=== PATIENT | female | born 1975 | race Asian ===

== ENCOUNTER 2018-06-04 11:49 | Outpatient (REF) | payer MEDICAID, SELFPAY ==
--- NOTE | 2018-06-04 11:30 | PAPFT_PTH ---
PATIENT: Anay Zamorano LOC: [facility] U#:[id number] AGE/SX: 43/F ROOM: RE06/04/[address]: Kerline Mackenzie CNM : 1975 BED: DIS: 06/04/2018 SPEC #: [id number] RECD: 06/04/18 13:00 STATUS: JORDAN CHRISTIAN #: [id number] YEN: 06/04/18 11:[address]: Kerline Mackenzie DEPT: [facility] Cytology RECD BY: Layla Sandoval ENTERED: 06/04/18 13:00 SP TYPE: PAPFT OTHR DR: Mayra Mann Tissues: 1 - CX/ENDOCX FOR PAP SMEARS Procedures: PAP THIN PREP/UVM Screening HPV DNA PROBE Comments: [id number]
[2018-06-04 14:00] LABS: Tricyclic Antidepressants Negative (Negative)
[2018-06-04 14:02] LABS: *AMPHETAMINES SCREEN URINE Negative (Negative); *BARBITURATES SCREEN URINE Negative (Negative); *BENZODIAZEPINES SCREEN URINE Negative (Negative); Cannabinoids THC Negative (Negative); Cocaine Screen,Urine Negative (Negative); METHADONE URINE SCREEN Negative (Negative); OPIATES URINE SCREEN Negative (Negative)
[2018-06-05 14:35] LABS: Chlamydia Result Negative; GC Result Negative; Specimen Description CERVIX
== END 2018-06-04 11:50 ==
LOC: LBN 11:49
PROVIDERS: PCP Nurse Practitioner Adult Health; Visit Provider Advanced Practice Midwife
DX: Z34.91 Encounter for supervision of normal pregnancy, unspecified, first trimester (principal); Z11.3 Encounter for screening for infections with a predominantly sexual mode of transmission; Z12.4 Encounter for screening for malignant neoplasm of cervix; Z11.51 Encounter for screening for human papillomavirus (HPV)
CPT/HCPCS: 80307; 87491; 87591; 88142; 87086; 87480; 87510; 87624; 87660

== ENCOUNTER 2018-06-04 12:02 | Outpatient (CLI) | payer MEDICAID, SELFPAY ==
[2018-06-04 12:30] LABS: Abs Immature Grans 0.03 k/cumm (0.0-0.09); Absolute Basophil Count 0.02 k/cumm (0.0-0.2); Absolute Eosinophil Count 0.06 k/cumm (0.0-0.7); Absolute Lymphocyte Count 1.27 k/cumm (1.2-3.4); Absolute Monocyte Count 0.52 k/cumm (0.11-0.7); Absolute Neutrophil Count 7.29 k/cumm (1.2-6.7); Basophils % 0.2; Eosinophils % 0.7; HCT 38.6 % (36.0-46.0); HGB 13.2 g/dL (12.0-15.5); Immature Grans % 0.3; Lymphocytes % 13.8; Mean Corp. HGB Concentration 34.2 g/dL (32.0-36.0); Mean Corpuscular Hemoglobin 26.7 pg (27.0-33.0); Mean Platelet Volume 9.8 fL (8.0-11.0); Monocytes % 5.7; Neutrophils % 79.3; Platelet Count 215 x1000/uL (130-400); RBC 4.95 m/cumm (4.00-5.20); White Blood Cell Count 9.19 k/cumm (4.4-10.8)
[2018-06-04 13:47] LABS: TSH (W/Ref FT4) 0.63 uIU/mL (0.358-3.74)
[2018-06-04 22:57] LABS: Hepatitis C Ab w Rflx HCV PCR Negative (NEGAT)
[2018-06-05 11:21] LABS: Rubella IgG Ab (UVM) Positive; Syphilis Serology (RPR) Negative (Negative)
[2018-06-05 13:32] LABS: Hepatitis B Surface Ag Negative (NEGAT)
[2018-06-05 13:41] LABS: HIV-1/2 Ag & Ab Screen Negative (NEGAT)
== END 2018-06-04 12:03 ==
PROVIDERS: PCP Nurse Practitioner Adult Health; Visit Provider Advanced Practice Midwife
DX: Z34.91 Encounter for supervision of normal pregnancy, unspecified, first trimester (principal)
CPT/HCPCS: 36415; 80055; 86850; 86900; 86901; 84443

== ENCOUNTER 2018-09-16 14:30 | Observation (INO) | payer MEDICAID, SELFPAY ==
[2018-09-16 16:24] LABS: Bilirubin Negative (Negative); Blood Negative (Negative); Clarity Clear; Glucose Negative (Negative); Ketones Negative (Negative); Leukocyte Esterase Negative (Negative); Nitrite Negative (Negative); Urobilinogen 0.2 EU/dL (Up TO 0.2)
== END 2018-09-16 18:05 | disposition home or self-care (01) ==
PROVIDERS: Admitting Provider Nurse Practitioner; PCP Nurse Practitioner Adult Health; Visit Provider Nurse Practitioner
DX: O60.02 Preterm labor without delivery, second trimester (principal); Z3A.24 24 weeks gestation of pregnancy; O9A.212 Injury, poisoning and certain other consequences of external causes complicating pregnancy, second trimester; O09.512 Supervision of elderly primigravida, second trimester; S33.5XXA Sprain of ligaments of lumbar spine, initial encounter; X50.0XXA Overexertion from strenuous movement or load, initial encounter
CPT/HCPCS: 81003; G0378

== ENCOUNTER 2018-10-09 08:25 | Outpatient (CLI) | payer MEDICAID, SELFPAY ==
[2018-10-09 10:11] LABS: Glucose,1 Hr (Glucola) 145 mg/dL (80-140)
[2018-10-09 10:12] LABS: HCT 34.6 % (36.0-46.0); HGB 11.4 g/dL (12.0-15.5); Mean Corp. HGB Concentration 32.9 g/dL (32.0-36.0); Mean Corpuscular Hemoglobin 27.3 pg (27.0-33.0); Mean Platelet Volume 10.1 fL (8.0-11.0); Platelet Count 173 x1000/uL (130-400); RBC 4.17 m/cumm (4.00-5.20); RBC Distribution Width 14.3 % (11.7-14.6); White Blood Cell Count 13.47 k/cumm (4.4-10.8)
== END 2018-10-09 08:45 ==
PROVIDERS: PCP Nurse Practitioner Adult Health; Visit Provider Nurse Practitioner
DX: Z34.93 Encounter for supervision of normal pregnancy, unspecified, third trimester (principal)
CPT/HCPCS: 36415; 82950; 85027; 86850

== ENCOUNTER 2018-10-23 02:58 | Outpatient (CLI) | payer MEDICAID, SELFPAY ==
[2018-10-23 10:25] LABS: Glucose 1 Hour 126 mg/dL
[2018-10-23 12:15] LABS: Glucose 3 Hour 128 mg/dL
== END 2018-10-23 03:18 ==
PROVIDERS: PCP Nurse Practitioner Adult Health; Visit Provider Advanced Practice Midwife
DX: R73.09 Other abnormal glucose (principal)
CPT/HCPCS: 36410; 82951

== ENCOUNTER 2018-12-09 17:21 | Outpatient (CLI) | payer MEDICAID, SELFPAY | END 2018-12-09 17:41 | PROVIDERS: PCP Nurse Practitioner Adult Health; Visit Provider Advanced Practice Midwife | DX: O09.523 Supervision of elderly multigravida, third trimester (principal); Z3A.36 36 weeks gestation of pregnancy | CPT/HCPCS: 59025 ==

== ENCOUNTER 2018-12-12 15:25 | Outpatient (CLI) | payer MEDICAID, SELFPAY | END 2018-12-12 15:45 | PROVIDERS: Visit Provider Advanced Practice Midwife | DX: O09.523 Supervision of elderly multigravida, third trimester (principal); Z3A.36 36 weeks gestation of pregnancy | CPT/HCPCS: 59025 ==

== ENCOUNTER 2018-12-12 16:32 | Outpatient (REF) | payer MEDICAID, SELFPAY | END 2018-12-12 16:52 | LOC: LBN 16:32 | PROVIDERS: Visit Provider Advanced Practice Midwife | DX: Z34.93 Encounter for supervision of normal pregnancy, unspecified, third trimester (principal); Z36.85 Encounter for antenatal screening for Streptococcus B | CPT/HCPCS: 87081 ==

== ENCOUNTER 2018-12-15 14:59 | Outpatient (CLI) | payer MEDICAID, SELFPAY | END 2018-12-15 15:19 | PROVIDERS: Visit Provider Advanced Practice Midwife | DX: O09.523 Supervision of elderly multigravida, third trimester (principal); Z3A.37 37 weeks gestation of pregnancy | CPT/HCPCS: 59025 ==

== ENCOUNTER 2018-12-18 16:54 | Outpatient (CLI) | payer MEDICAID, SELFPAY | END 2018-12-18 17:14 | PROVIDERS: Visit Provider Advanced Practice Midwife | DX: O09.523 Supervision of elderly multigravida, third trimester (principal); Z3A.37 37 weeks gestation of pregnancy | CPT/HCPCS: 59025 ==

== ENCOUNTER 2018-12-22 16:11 | Outpatient (CLI) | payer MEDICAID, SELFPAY | END 2018-12-22 16:31 | PROVIDERS: Visit Provider Advanced Practice Midwife | DX: O09.523 Supervision of elderly multigravida, third trimester (principal); Z3A.37 37 weeks gestation of pregnancy | CPT/HCPCS: 59025 ==

== ENCOUNTER 2018-12-25 14:09 | Outpatient (CLI) | payer MEDICAID, SELFPAY | END 2018-12-25 14:29 | PROVIDERS: Visit Provider Advanced Practice Midwife | DX: O09.523 Supervision of elderly multigravida, third trimester (principal); Z3A.38 38 weeks gestation of pregnancy | CPT/HCPCS: 59025 ==

== ENCOUNTER 2018-12-29 13:47 | Outpatient (CLI) | payer MEDICAID, SELFPAY | END 2018-12-29 14:07 | PROVIDERS: Visit Provider Advanced Practice Midwife | DX: O09.523 Supervision of elderly multigravida, third trimester (principal); Z3A.39 39 weeks gestation of pregnancy | CPT/HCPCS: 59025 ==

== ENCOUNTER 2019-01-01 15:50 | Outpatient (CLI) | payer MEDICAID, SELFPAY | END 2019-01-01 16:10 | PROVIDERS: Visit Provider Advanced Practice Midwife | DX: O09.523 Supervision of elderly multigravida, third trimester (principal); Z3A.39 39 weeks gestation of pregnancy | CPT/HCPCS: 59025 ==

== ENCOUNTER 2019-01-05 14:29 | Outpatient (CLI) | payer MEDICAID, SELFPAY | END 2019-01-05 14:49 | PROVIDERS: Visit Provider Advanced Practice Midwife | DX: O09.523 Supervision of elderly multigravida, third trimester (principal); O48.0 Post-term pregnancy; Z3A.40 40 weeks gestation of pregnancy | CPT/HCPCS: 59025 ==

== ENCOUNTER 2019-01-08 00:47 | Outpatient (CLI) | payer MEDICAID, SELFPAY ==
--- NOTE | 2019-01-08 12:43 | DI.US_ITS ---
SYMPTOMS/DIAGNOSIS: POST DATES, ADVANCED MATERNAL AGE, Z34.90 LIMITED OBSTETRICAL ULTRASOUND: Many abnormalities cannot be diagnosed. A normal exam does not exclude a congenital anomaly. Radiology No. [id number] LMP: Exam Date: 01/08/19 [facility] wks days on EDC ([facility]) 01/05/19 Confirmed: HISTORY: PREDICTED GESTATIONAL AGE NUMBER 40+3 weeks with a range of 39+3 weeks to 41+3 weeks. 1 Determined by___1STUS___LMP___HISTORY__X___EDC PLACENTA PRESENTATION Grade II Cephalic_X__ Anterior_X__Posterior___ Breech____ Right Left Transverse(head right___ Fundal___Low-lying___Previa___ Transverse(head left___ Varying BIOMETRY AMNIOTIC FLUID BPD: 93 mm 37+5 weeks Normal HC: 346 mm 40 weeks AC: 364 mm 40+2 weeks FL: 75 mm 38+1 weeks AMNIOTIC FLUID INDEX >26 WK CRL: mm weeks Cisterna Magna: mm CI: 0.78 RUQ: 3.33 LUQ: 7.62 Cerebellum: cm EFW: 3805 grams Percentile: 59th RLQ: 2.58 LLQ: 3.07 Total: 16.6 cm Composite AGE= 39 wks EDC by US: 01/15/19 BIOPHYSICAL PROFILE ANATOMY IDENTIFIED SCORE 0/2 Heart: 4-Chamber___Rate:BPM 132 LVOT: RVOT: Amniotic Fluid(>2cms)____ Stomach:___X____ Kidneys: Respirations (>30 secs) Bladder:___X Post. Fossa: Body Flex/Extension 3-vessel cord:__X Ventricles: cord insertion: Lips:____ Extremity Flex/Extension spinal morphology: Nose: Total Score= Palate: NS=not seen COMMENTS: There is a single living intrauterine gestation. Estimated sonographic age is 39 weeks. The fetus is in the cephalic presentation. heart rate is 132 beats per minute. A complete anatomic evaluation was not performed at this examination. The amniotic fluid index is 16.6 cm. Visually, this is within normal limits. Placenta is anterior without evidence of previa. Estimated weight is 3805 g, which is the 59th percentile. IMPRESSION: Single living intrauterine gestation. Estimated sonographic age is 39 weeks.
== END 2019-01-08 01:07 ==
PROVIDERS: Visit Provider Advanced Practice Midwife
DX: O48.0 Post-term pregnancy (principal); Z34.93 Encounter for supervision of normal pregnancy, unspecified, third trimester
CPT/HCPCS: 76816

== ENCOUNTER 2019-01-08 13:26 | Outpatient (CLI) | payer MEDICAID, SELFPAY | END 2019-01-08 13:46 | PROVIDERS: Visit Provider Advanced Practice Midwife | DX: O09.523 Supervision of elderly multigravida, third trimester (principal); O48.0 Post-term pregnancy; Z3A.40 40 weeks gestation of pregnancy | CPT/HCPCS: 59025 ==

== ENCOUNTER 2019-01-09 07:00 | Inpatient (IN) | payer MEDICAID, SELFPAY ==
[2019-01-09 09:10] LABS: HCT 34.7 % (36.0-46.0); HGB 11.7 g/dL (12.0-15.5); Mean Corp. HGB Concentration 33.7 g/dL (32.0-36.0); Mean Corpuscular Hemoglobin 27.7 pg (27.0-33.0); Mean Platelet Volume 10.4 fL (8.0-11.0); Platelet Count 143 x1000/uL (130-400); RBC 4.23 m/cumm (4.00-5.20); RBC Distribution Width 14.5 % (11.7-14.6); White Blood Cell Count 15.55 k/cumm (4.4-10.8)
[2019-01-09] MEDS: Hamamelis Leaf/Glycerin 100 EACH BOX PR (22:01)
[2019-01-10 11:27] LABS: HCT 31.1 % (36.0-46.0); HGB 10.5 g/dL (12.0-15.5); Mean Corp. HGB Concentration 33.8 g/dL (32.0-36.0); Mean Corpuscular Hemoglobin 27.6 pg (27.0-33.0); Mean Corpuscular Volume 81.8 fL (80-95); Mean Platelet Volume 10.4 fL (8.0-11.0); Platelet Count 136 x1000/uL (130-400); RBC Distribution Width 14.5 % (11.7-14.6); White Blood Cell Count 17.96 k/cumm (4.4-10.8)
== END 2019-01-12 13:35 | disposition home or self-care (01) | DRG 806 ==
PROVIDERS: Admitting Provider Advanced Practice Midwife; Visit Provider Advanced Practice Midwife
DX: O48.0 Post-term pregnancy (principal); Z37.0 Single live birth; O98.32 Other infections with a predominantly sexual mode of transmission complicating childbirth; O70.0 First degree perineal laceration during delivery; O32.4XX0 Maternal care for high head at term, not applicable or unspecified; O92.3 Agalactia; Z3A.40 40 weeks gestation of pregnancy; A60.00 Herpesviral infection of urogenital system, unspecified
CPT/HCPCS: 36415; 85027; 86850; 86900; 86901

== ENCOUNTER 2020-06-08 02:53 | Outpatient (CLI) | payer MEDICAID, SELFPAY ==
--- NOTE | 2020-06-08 06:30 | DI.US_ITS ---
EXAM: US PELVIS TRANSVAGINAL CLINICAL HISTORY: Left sided pelvic pain,r10.2 TECHNIQUE: Ultrasound performed using standard protocol. COMPARISON: US US OB KARISSA weight from 01/08/2019 FINDINGS: Pelvic ultrasound was performed transabdominally and transvaginally. Please see the accompanying steve a sheet for measurements of the pelvic structures. Patient is reportedly premenopausal. There is a 13 millimeter in diameter solid echogenicity mass of the right ovary, mild Nichole lesional i ncreased vascular flow noted. Findings may represent hemorrhagic cyst. Follow-up study requested in 4-6 weeks to re-evaluate the right ovary. Left ovary has a normal follicular appearance. There are a couple of apparent uterine fibroids, the largest 36 millimeters in greatest diameter in t he posterior uterine fundus. Endometrial stripe is about 18 millimeters in thickness and appears allie rly homogeneous. No free fluid identified in the cul-de-sac. Limited scanning of the kidneys is unremarkable. IMPRESSION: 13 millimeter echogenic lesion of the right ovary, likely hemorrhagic cyst. Follow-up ultrasound req uested in 4-6 weeks to exclude neoplastic disease or other causes. DATA REPOSITORY:
== END 2020-06-08 03:13 ==
PROVIDERS: Visit Provider Nurse Practitioner Women's Health
DX: R10.2 Pelvic and perineal pain (principal); N83.8 Other noninflammatory disorders of ovary, fallopian tube and broad ligament
CPT/HCPCS: 76830; 76856

== ENCOUNTER 2020-07-12 03:12 | Outpatient (CLI) | payer MEDICAID, SELFPAY ==
--- NOTE | 2020-07-12 12:45 | DI.US_ITS ---
EXAM: US PELVIS TRANSVAGINAL CLINICAL HISTORY: F/U RT HEMORRHAGIC CYST, N83.201 TECHNIQUE: Transabdominal and transvaginal imaging was performed using standard protocol. COMPARISON: US PELVIS TRANSVAG from 01/12/2011 US SURVEY*(P) from 04/01/2012 US [facility]WC OB ULTRASOUND from 05/20/2018 US US PELVIS TRANSVAGINAL from 06/08/2020 FINDINGS: KIDNEYS: Kidneys are symmetric in size. No evidence of renal calculi. No evidence of hydronephrosis. No renal mass or cyst identified. UTERUS: Retroverted. 12.5 x 5.5 x 8.3 cm. Endometrium: 14 millimeters Myometrium: Multiple small fibroids. Cervix: Nabothian cysts OVARIES: Right: Cyst or mass: Dominant follicle. Left: Cyst or mass: None. DOPPLER: Color: Symmetric and uniform flow to both ovaries. No hyperemia. Duplex: Normal ovarian arterial waveforms visualized. CUL-DE-SAC: Free fluid: Trace IMPRESSION: 1. Fibroid uterus.. 2. No suspicious ovarian masses. DATA REPOSITORY:
== END 2020-07-12 03:32 ==
PROVIDERS: Visit Provider Nurse Practitioner Women's Health
DX: D25.9 Leiomyoma of uterus, unspecified (principal); N83.01 Follicular cyst of right ovary
CPT/HCPCS: 76830; 76856

== ENCOUNTER 2022-01-19 00:13 | Outpatient (CLI) | payer MEDICAID, SELFPAY ==
--- NOTE | 2022-01-19 06:00 | DI.US_ITS ---
Exam(s) US SONOHYSTEROGRAM W BIOPSY EXAM: US SONOHYSTEROGRAM W BIOPSY CLINICAL HISTORY: abnormal uterine bleeding,fibroid,d25.9,n92.0 TECHNIQUE: Ultrasound performed using standard protocol. COMPARISON: US US PELVIS TRANSVAGINAL from 07/12/2020 FINDINGS: Ultrasound guidance was provided for endometrial biopsy performed by Dr. Hernandez. Please see Dr. Leodan Joseph procedure note. IMPRESSION: DATA REPOSITORY:
--- NOTE | 2022-01-19 08:40 | ENDOMET_PTH ---
PATIENT: Anay Zaomrano LOC: [facility] U#:[id number] AGE/SX: 46/F ROOM: RE01/19/[address]: Patricia Hernandez : 1975 BED: DIS: 01/19/2022 SPEC #: [id number] RECD: 01/19/22 12:34 STATUS: JORDAN REElvia #: [id number] YEN: 01/19/22 08:[address]: Patrciia Hernandez DEPT: Surgical Specimen RECD BY: Layla Sandoval Tissues: 1 - ENDOMETRIUM BX/ISMAEL Procedures: GROSS AND MICRO LEVEL 4 Comments: [id number]
--- NOTE | 2022-01-19 10:13 | W.PROCNOTE ---
Date of service: 01/19/22 Time of Service: 10:13 Procedure Note Date of procedure: 01/19/22 Procedure: Sonohysterogram with endometrial biopsy Procedure Diagnosis: Abnormal uterine bleeding, anemia, uterine fibroid Procedure Indications: Patient was previously seen 12/05/2021 with heavy menstrual flow and occasionally shorter interval than 30 days between cycles. POC hbg was 10.5.? She was given norethindrone acetate Rx 5 mg daily which has improved her menstrual flow but not eliminated her menses entirely Patient has agreed to this diagnostic procedure to guide plan of care. Procedure Description: After verbal and written consent was obtained the procedure was performed and diagnostic imaging with the assistance of an supercharger repair supervisor. [place] speculum was placed in the vagina the cervix was cleansed with Betadine. A HSG catheter was inserted through through the cervix and the catheter balloon inflated.? Instruments were then removed from the vagina and the endovaginal probe was then inserted and under direct visualization 20 cc of normal saline was instilled into the uterine cavity with excellent visualization the entire cavity. There is no evidence of intracavitary filling defects. There is a prominent fibroid adjacent to and displacing the endometrial cavity. There was no evidence of a submucosal fibroid. The endovaginal probe was then removed and the HSG catheter bulb deflated and the catheter removed without difficulty. A bivalve speculum was placed into the vagina and a endometrial biopsy Pipelle was inserted to a depth of 7 cm and all 4 quadrants of the uterine cavity were sampled in 2 passes.? The endometrial biopsy was processed and sent to the lab. Instruments removed from the patient's vagina and cervix.? Patient tolerated the procedure well. Reviewed the results of the sonohysterogram.? I will notify the patient of the results of the endometrial biopsy when available.? She was counseled today regarding the possibility of a hysterectomy in place medical management for her heavy bleeding.
== END 2022-01-19 00:33 ==
PROVIDERS: Visit Provider Obstetrics & Gynecology Gynecology
DX: D25.9 Leiomyoma of uterus, unspecified (principal); N92.0 Excessive and frequent menstruation with regular cycle; N85.00 Endometrial hyperplasia, unspecified
CPT/HCPCS: 58340; 88305; 76831; 76942

== ENCOUNTER 2022-03-05 01:44 | Outpatient (CLI) | payer MEDICAID, SELFPAY | END 2022-03-05 01:45 | disposition home or self-care (01) | LOC: LBO 01:45 | PROVIDERS: Visit Provider Obstetrics & Gynecology Gynecology ==

== ENCOUNTER 2022-03-05 02:25 | Outpatient (CLI) | payer MEDICAID, SELFPAY ==
[2022-03-05 10:32] LABS: Source Nasal/Nares
[2022-03-05 11:15] LABS: HCT 40.8 % (36.0-46.0); HGB 12.8 g/dL (11.2-15.7); MCH 24.4 pg (27.0-33.0); MCHC 31.4 % (32.0-36.0); MCV 78 fL (80-95); MPV 10.9 fL (8.0-11.0); Platelet Count 202 10^3/uL (130-400); RBC 5.24 10^6/uL (3.93-5.22); RDW 13.1 % (11.7-14.6); RDW-SD 37.2 fL
[2022-03-05 11:53] LABS: Anion Gap 7.9 mmol/L (3-11); BUN 11 mg/dL (7-18); CO2 27.1 mmol/L (21.0-32.0); CREATININE 0.7 mg/dL (0.55-1.02); Calcium 8.8 mg/dL (8.5-10.1); Chloride 105 mmol/L (98-107); Glucose 83 mg/dL (74-106); Sodium 140 mmol/L (136-145)
[2022-03-05 12:01] LABS: HCG Qual (Serum) Negative
[2022-03-05 13:16] LABS: COVID-19 PCR Negative (Negative)
== END 2022-03-05 02:26 | disposition home or self-care (01) ==
LOC: LBO 02:25
PROVIDERS: Visit Provider Obstetrics & Gynecology Gynecology
DX: N92.0 Excessive and frequent menstruation with regular cycle (principal); N94.6 Dysmenorrhea, unspecified; Z01.818 Encounter for other preprocedural examination; Z01.812 Encounter for preprocedural laboratory examination; Z20.822 Contact with and (suspected) exposure to COVID-19
CPT/HCPCS: 36415; 80048; 85027; 86850; 86900; 86901; 87635; 84703

== ENCOUNTER 2022-03-07 14:21 | Observation (INO) | payer MEDICAID, SELFPAY ==
[2022-03-07] VITALS (16 sets, daily range): BP systolic 96–162; BP diastolic 55–108; PULSE 63–747; RESP 14–18; TEMP 35–37; O2SAT 95–100; BMI 24.3
[2022-03-07] MEDS: Lactated Ringers 1,000 ML 80 ML IV ×2 (07:41→12:35)
--- NOTE | 2022-03-07 08:10 | ANES.PREOP_ITS ---
General Info Date of Service Date Performed: 03/07/22 Height: 5 ft 6 in Weight: 68.209 kg Body Mass Index (BMI): 24.3 Surgical Procedure: Operation Date: 03/07/22 09:10 Proposed Procedure Side Surgeon p Hysterectomy Vaginal Laparoscopic Assist/ possible Bi-Lat Oopherectomy/Bladder Cystoscopy Patricia Hernandez MD Meds Allergies and Home Medications Allergies Allergy/AdvReac Type Severity Reaction Status Date / Time No Known Drug Allergies Allergy Verified 03/07/22 07:15 Home Medication Medication Instructions Recorded multivitamin (Daily Multi-Vitamin) 1 tab PO DAILY 12/05/21 norethindrone acetate 5 mg tablet 5 mg PO DAILY #60 tab 12/05/21 (Aygestin) valacyclovir 1 gram tablet 1,000 mg PO BID #10 tab 12/05/21 (Valtrex) acetaminophen 500 mg PO DIRECTED 02/27/22 ibuprofen 200 mg PO DIRECTED 02/27/22 Current Visit Medications: Current Medications Generic Name Dose Route Start Last Admin Trade Name Freq PRN Reason Stop Dose Admin Ringer's Solution 1,000 mls @ 80 mls/hr 03/07/22 06:00 03/07/22 07:41 IV 04/05/22 23:59 80 mls/hr INFUSION STEPHAN Administration Cefazolin Sodium/Dextrose 2 gm in 50 mls @ 100 mls/hr 03/07/22 06:00 Ancef Duplex IVPB 04/05/22 23:59 PREOP STEPHAN IV Miscellaneous Supplies 1 each 03/07/22 06:00 Iv Access IV 04/05/22 23:59 DIRECTED STEPHAN Sodium Chloride 0 ml 03/07/22 06:00 Normal Saline Flush 10 Ml Syr IV 04/05/22 23:59 PRN PRN Sodium Chloride 0 ml 03/07/22 06:00 Normal Saline 10 Ml Vial IJ 04/05/22 23:59 DIRECTED PRN Sterile Water 0 ml 03/07/22 06:00 Water,Injection,Sterile 10 Ml Vial IJ 04/05/22 23:59 DIRECTED PRN PFSH Active Problems Active Problems: Problem Status Onset Code Dysmenorrhea N94.6 Anemia D64.9 Genital herpes A60.00 Fibroid, uterine D25.9 Heavy menstrual bleeding N92.0 , Ectopic Medical History Medical History Acute tear medial meniscus History of right lateral epicondylitis Otitis media of left ear with rupture of tympanic membrane Right hamstring muscle strain Right knee pain Tobacco Smoking/Tobacco Use Status: Never Alcohol Alcohol Intake: never Substance Use Substance use: Never Substance use type: does not use Prental History History 4 Para 2 Hx # Term Pregnancies 2 Multiple births 0 Hx # Pregnancies 0 Ectopic pregnancies 0 AB induced 0 Hx Number of Living Children 2 AB spontaneous 2 Past Pregnancies Del. Date GA/Weeks # Outcome Route Wgt Sex Labor Lgth Anesthes ia Location Prov Complic 10/29/12 40 No Successful vaginal Female 01/09/19 40 No Successful vaginal 3968.933 g Male Marcyhuy Mackenzie CNM Delivery Date: 10/29/12 Last Updated by: Marychuy De Oliveira MD Delivery Date: 01/09/19 Last Updated by: Sammi Patel LPN needle rupture by Vital Signs and Lab Results Vital Signs Most Recent Vital Signs in EMR: Most Recent Vital Signs Temp Pulse Resp BP Pulse Ox 36.2 C L 87 16 162/108 H 100 03/07/22 07:00 03/07/22 07:00 03/07/22 07:00 03/07/22 07:00 03/07/22 07:00 Lab Results Blood Type / Crossmatch: Patient ABO/Rh O Positive 03/05/22 Antibody Screen NEGATIVE 03/05/22 Complete Blood Count: White Blood Count 5.60 10^3/uL (4.4-10.8) 03/05/22 11:10 03/05/22 Red Blood Count 5.24 10^6/uL (3.93-5.22) H 03/05/22 11:10 03/05/22 Hemoglobin 12.8 g/dL (11.2-15.7) 03/05/22 11:10 03/05/22 Hematocrit 40.8 % (36.0-46.0) 03/05/22 11:10 03/05/22 Platelet Count 202 10^3/uL (130-400) 03/05/22 11:10 03/05/22 Complete Metabolic Panel: Sodium Level 140 mmol/L (136-145) 03/05/22 11:10 03/05/22 Potassium Level 4.0 mmol/L (3.5-5.1) 03/05/22 11:10 03/05/22 Chloride Level 105 mmol/L (98-107) 03/05/22 11:10 03/05/22 Carbon Dioxide Level 27.1 mmol/L (21.0-32.0) 03/05/22 11:10 03/05/22 Blood Urea Nitrogen 11 mg/dL (7-18) 03/05/22 11:10 03/05/22 Creatinine 0.7 mg/dL (0.55-1.02) 03/05/22 11:10 03/05/22 Estimated GFR/1.73 m2 >= 60.00 (mL/min/1.73m2) 03/05/22 11:10 03/05/22 Calcium Level 8.8 mg/dL (8.5-10.1) 03/05/22 11:10 03/05/22 Glucose Level 83 mg/dL (74-106) 03/05/22 11:10 03/05/22 Liver Function Panel: No Data to Display Coagulation Panel: No Data to Display Cardiac Panel: No Data to Display Arterial Blood Gas: No Data to Display Venous Blood Gas: No Data to Display Pancreas Panel: No Data to Display Thyroid Panel: No Data to Display Infectious Disease: Coronavirus (COVID-19)(PCR) Negative (Negative) 03/05/22 10:15 03/05/22 Coronavirus 2019 Source Nasal/Nares 03/05/22 10:15 03/05/22 Blood Cultures: No Data to Display Toxicology Panel: No Data to Display Panel: Serum HCG, Qualitative Negative 03/05/22 11:10 03/05/22 Anesthesia Assessment and Plan Anesthesia History Personal History: No History of Anesthesia Complications Family History: No Family History of Anesthesia Complications Exercise Tolerance Exercise Tolerance: Metabolic Equivalents>4 Pertinent Negatives Pertinent Negatives: No Symptoms of GERD, No Major Cardiovascular Symptoms or Complaints and No Major Pulmonary Symptoms or Complaints Cardiac & Pulmonary Exam Cardiac Exam: Normal S1/S2 Heart Sounds Pulmonary Exam: Clear Bilateral Breath Sounds Implantable Cardiac Device Does patient have a Pacemaker or an ICD?: No Airway Exam Known Difficult Airway: No Mallampati Class: 1 Mouth Opening: Normal (> 3cm) Thyromental Distance: Greater than 3 cm Neck Range of Motion: Full ROM Neck Circumference: Normal Teeth Condition: Normal Dentition ASA Classification ASA Score: ASA 2 Emergency Case?: No NPO Status NPO Status: NPO Clears >2 hours, Solids >8 hours Status Status: Negative HCG Anesthesia Plan Resuscitation Status: Full Code Anesthesia Technique: General Anesthesia Airway Planned: Endotracheal Tube Pain Management: Intrathecal Analgesia Monitors Used: Standard Monitors
[2022-03-07] MEDS: ceFAZolin 2 GM/50 ML BAG IVPB (11:03)
[2022-03-07] MEDS: Lidocaine 1% Multi-Dose W/EPI 1/100,000 50 ML VIAL (12:08)
[2022-03-07] MEDS: Bupivacaine 0.25% Pres-Free 30 ML VIAL (12:08)
--- NOTE | 2022-03-07 13:09 | UTER_PTH ---
PATIENT: Anay Zamorano LOC: U#:[id number] AGE/SX: 46/F ROOM: 216 RE03/07/[address]: Patricia Hernandez : 1975 BED: A DIS: 03/09/2022 SPEC #: [id number] RECD: 03/07/22 15:33 STATUS: JORDAN REQ #: [id number] YEN: 03/07/22 13:[address]: Patricia Hernandez DEPT: Surgical Specimen RECD BY: Yomaira Grayson Tissues: 1 - UTERUS W OR W/O OVARIES(NOT TUMOR/PROLAPSE) Procedures: GROSS AND MICRO LEVEL 5 Comments: [id number]
[2022-03-07] MEDS: Cellulose,Oxidized 4X8 1 PACKET MC (13:40)
--- NOTE | 2022-03-07 14:26 | ROE_ITS ---
Date of service: 03/07/22 Time of Service: 14:26 Operative Note Operative Note DATE OF PROCEDURE: 03/07/22 PRE-OP DIAGNOSIS: Abnormal uterine bleeding, uterine fibroids PROCEDURE: laparoscopic assisted vaginal hysterectomy, bilateral salpingectomy, bladder cystoscopy SURGEON: Patricia Hernandez ASSISTING SURGEON: Elisha Jones ANESTHESIA TYPE: General LMA/ETT and Spinal Refer to Anesthesia Record ESTIMATED BLOOD LOSS: 300 PATHOLOGY: other (uterus, cervix, fallopian tubes ) Implants: none Indications: 46yo female with a longstanding history of abnormal uterine bleeding and enlarged uterus with multiple fibroids. She has had anemia from menorrhagia treated with norethindrone. Findings: Uterine cavity sounded to 11 cm. Uterus was bulky in appearance with 1 small anterior exophytic fibroid. Normal-appearing ovaries and fallopian tubes. Prominent bilateral uterine artery vasculature. Normal appendix, normal upper abdomen. Procedure Description: Patient was taken to the operating room where she was placed in the sitting position and spinal anesthesia was administered. She received 2 g of Ancef prior to skin incision. She was then placed in the dorsal supine position and general endotracheal anesthesia was administered without difficulty. She was then placed in the dorsal lithotomy position in [facility] with SCDs in place. After being prepped and draped in the usual sterile fashion a surgical timeout was performed. Myrick catheter was placed to gravity drainage. A bivalve speculum was placed in the vagina the anterior lip of the cervix was grasped with a single-tooth tenaculum. A Zumi uterine manipulator was successfully inserted into the uterine cavity, the catheter bulb inflated with 3 cc of normal saline and the device left in place. Attention was then turned to the patient's abdomen. The umbilical fold was infiltrated with quarter percent Marcaine without epinephrine. A scalpel was then used to make a 12mm vertical skin incision in the umbilical fold. Two penetrating towel clips were used to tent up the skin and through the periumbilical incision and a Veres needle was introduced into the abdomen with carbon dioxide as the distention medium. Intra-abdominal placement was confirmed by a drop in the intra-abdominal pressure. Once a pneumoperitoneum was established a 12 mm Visiport was placed under direct visualization and intra-abdominal placement confirmed by use of the laparoscope. Patient was then placed in Trendelenburg position. At two sites approximately 6 cm diagonally from the umbilical incision the skin was infiltrated with 1cc of 0.25% Marcaine without epinephrine, incised with a scalpel and two 5 mm lower ports were placed under direct visualization. After careful inspection of the pelvis a LigaSure electrocautery device was used to clamp, cauterize and transect the left round ligament. Left ovarian ligament was clamped cauterized and transected from its attachment to the body of the uterus. Bleeding it was noted and was controlled I used a LigaSure electrocautery device. The left broad ligament was then clamped, cauterized and transected to the level of the lower uterine segment. There was significant pelvic vasculature lower uterine segment. This was cauterized but not transe cted. Thevesico-uterine peritoneum was incised and the the from the lower uterine segment and mobilized off of the body of the cervix. The pedicles of the suspensory, round and broad ligaments were inspected and noted to be hemostatic. On the contralateral side the right ovarian ligament, round, and right broad ligaments were sequentially clamped, cauterized and transected using the L igasure device to the level of the insertion of the uterine artery and vein at the lower uterine segment. The remaining the vesicouterine peritoneum was incised across the lower uterine segment and the bladder flap created using the Ligasure device and gentle counter traction. All pedicles were inspected and noted to be hemostatic. Decision was made to proceed with the vaginal portion of the case. Laparoscopic instruments were removed from the ports , the pneumoperitoneum was reduced, and the was abdomen covered with sterile drape. A weighted vaginal speculum was placed in the vagina and the anterior and posterior lips of the cervix were grasped with Anthony clamps. A solution of 1% lidocaine with dilute epinephrine was used to infiltrate the body of the cervix in a circumferential fashion followed by a circumferential incision of the cervical epithelium with Bovie electrocautery. The vesicouterine fascia was identified and the anterior cul-de-sac was entered using blunt and sharp disection. Through this incision a curved right angled retractor was inserted and used to retract the bladder away from the operative field. The posterior cul-de-sac was entered sharply and through the this incision a long billed weighted speculum was placed. The left and right uterosacral ligament complexes were identified clamped, transected and suture-ligated and the suture held long. The remaining right and left broad ligament attatchments were sequentially clamped, cauterized, and transected. Because of the size of the uterus it was bivalved along the anterior portion allowing the uterus with attached fallopian tubes to be delivered through the vagina. Any remaining remnants of broad ligament attached to the pelvic sidewall were sequentially clamped and transect. the specimen was passed off of the operative field. All of the pedicle sites were inspected and were hemostatic. The vaginal cuff was reapproximated in a vertical fashion with a running locked suture of 0 Vicryl. Instruments removed from the vagina and attention was again turned to the abdomen where a pneumoperitoneum was reestablished and the pelvis inspected using the laparoscope. The vaginal cuff was intact and was hemostatic as were the round ligament and broad ligament pedicles both at 15mmHg and when the pressure was temporarily reduced to 5mmHg. The instruments were removed from the port sites under direct visualization, the pneumoperitoneum reduced, and the ports removed. The fascia of the periumbilical skin incision was closed with interrupted suture of 0 Vicryl. The skin of all port site incisions were reapproximated with a subcuticular closure of 4-0 Monocryl and and covered with skin glue. A cystoscopy was performed with both ureteral jets patent with a brisk reflux of urine from each. The bladder was inspected and no evidence of sutures were present. Myrick catheter was reinserted to gravity drainage and the patient was placed in the dorsal supine position, awakened, extubated, and transported recovery area in stable condition. All sponge lap needle counts correct x2.
--- NOTE | 2022-03-07 15:35 | W.ANESPOSTOP ---
Postoperative Evaluation Date, Time and Location Date Performed: 03/07/22 Time Performed: 15:15 Patient Location: Med/Surg Vital Signs Most Recent Imported Vital Signs: Most Recent Vital Signs Temp Pulse Resp BP Pulse Ox 35.1 C L 66 16 96/65 L 99 03/07/22 15:31 03/07/22 15:31 03/07/22 15:31 03/07/22 15:31 03/07/22 15:31 Pain Score Most Recent Pain Score: Most Recent Pain Score Pain Level 0 03/07/22 15:31 Assessment Mental Status: Awake (Alert & Oriented to Patient Baseline) Airway and Respiratory Function: Patent airway with normal (patient baseline) respiratory exam Cardiovascular Function: Hemodynamically Stable Hydration Status: Adequately Hydrated Nausea & Vomiting: No Nausea or Vomiting Pain: Pt. Denies Any Pain Peripheral Nerve Block: Patient did not receive a nerve block
--- NOTE | 2022-03-07 15:45 | NUR.NOTE ---
Nursing Note: Patient on med surg unit at 1500 from PACU.
--- NOTE | 2022-03-07 17:23 | DSE_ITS ---
DS: Diagnosis Discharge Diagnosis (1) Dysmenorrhea: (2) Heavy menstrual bleeding: (3) S/P laparoscopic assisted vaginal hysterectomy (LAVH): Status: Acute Asessment and Plan: 03/07/2022. Laparoscope assisted vaginal hysterectomy with bilateral salpi ngectomy performed. Bladder cystoscopy was performed at the end of the procedure. Ovaries were conserved. Discharge Plan Disposition Patient Disposition: HOME Condition: Good Discharge Details Reason For Visit: LAVH Admit Date/Time: 03/07/22 14:21 Admit Provider: Patricia Hernandez Attending Provider: Patricia Hernandez Primary Care Provider: Unknown,Unknown Hospital Course Hospital Course: Patient was admitted the morning of surgery and underwent the above-stated procedure. Her uterus was bulky with multiple intramural fibroids. Estimated blood loss in the surgery 300 cc. She was discharged home on postop day #2 tolerating a regular diet and voiding spontaneously. [facility] and to discuss pathology findings. She was given instructions regarding activity levels. Prescription for Percocet 5/325 number 5 tablets were E faxed to her pharmacy along with a prescription for 600 mg of ibuprofen. Patient was instructed to stop her norethindrone acetate. Home Meds and New Rx's Prescriptions: No Action oxycodone-acetaminophen [Endocet] 5-325 mg tablet 1 tab PO Q6H MDD 4 PRN (Reason: pain) Qty: 5 0RF multivitamin [Daily Multi-Vitamin] Tablet 1 tab PO DAILY ibuprofen 600 mg tablet 600 mg PO Q6H PRN (Reason: pain) Qty: 60 0RF acetaminophen 500 mg PO DIRECTED Discharge Instructions Stand Alone Forms: DSU Post Engineering Manager SurgeryW/Incision, Nursing Discharge Form Referrals: Patricia Hernandez MD [ [facility] STAFF PHYSICIAN] - 03/16/22 2:00 pm Activity:: Activity as Tolerated Equipment/Supplies:: No Equipment Needed Diet:: As Tolerated Discharge Orders Discharge Orders: Discharge Order (Routine); Ordered 03/09/22 Ordered By: Nora Brynat Discharge Data Discharge Date/Time-TO BE ENTERED AT DEPARTURE: 03/09/22 13:19 DS: Summary Time Spent with Patient providing and/or coordinating discharge services: Less than 30 minutes Status at Discharge Functional status at discharge: independent ambulation Overall status at discharge: patient is progressing back to baseline Mental Status: mental status grossly normal Speech and Movement: speech and movement normal Mood: congruent mood Affect: normal affect Exam Psych Mental Status: mental status grossly normal Speech and Movement: speech and movement normal Mood: congruent mood Affect: normal affect DS: Data Vitals/I&O Vitals and I&O: Vital Signs Temperature 97.2 F L 03/07/22 17:11 Temperature Source Tympanic 03/07/22 17:11 Pulse 63 03/07/22 17:11 Pulse Rhythm Regular 03/07/22 15:39 Respiratory Rate 18 03/07/22 17:11 Respiratory Effort Non-Labored 03/07/22 15:39 Respiratory Depth Normal 03/07/22 15:39 Respiratory Pattern Normal 03/07/22 15:39 Blood Pressure 113/74 03/07/22 17:11 Pulse Oximetry 100 03/07/22 17:11 Respiratory End-tidal CO2 34 03/07/22 14:50 Oxygen Delivery Method Room Air 03/07/22 17:11 Oxygen Flow Rate 0 03/07/22 17:11 Pain Level 0 03/07/22 17:11 Intake & Output 03/06/22 03/07/22 03/07/22 23:59 11:59 23:59 Intake Total 50 / 1600 1550 / 1600 Output Total 350 / 350 Balance 50 / 1250 1200 / 1250 Weight 150 lb 6.002 oz Intake: IV 50 / 1600 1550 / 1600 Output: Urine 50 / 50 Estimated Blood Loss 300 / 300 Other: Urine Color Yellow Urine Appearance Clear Emesis Description None PFSH All Active Problems (Updated 03/20/22 @ 12:16 by Federico Morin MD) Conductive hearing loss in left ear (Acute) Tympanic membrane central perforation (Acute) Encounter for postoperative wound check (Acute) S/P laparoscopic assisted vaginal hysterectomy (LAVH) (Acute) Anemia (Chronic) Genital herpes (Acute) Medical History Acute tear medial meniscus Dysmenorrhea Fibroid, uterine Heavy menstrual bleeding History of right lateral epicondylitis Otitis media of left ear with rupture of tympanic membrane , Ectopic 2010, Removal of R fallopian tube Right hamstring muscle strain Right knee pain Surgical History History of hysterectomy Family History Father Hypertension Social History Smoking/Tobacco Use Status: Never Smoking risk assessment performed?: Yes Alcohol Intake: never Drug use: Never Substance use type: does not use Adopted: No Foster care: No Household members: spouse and other Details: [facility] Number of Children: 2 Pets and animals: Yes Pets and animals: dog(s) Do you feel safe at home: Yes Do you feel safe in your relationship?: Yes History History 4 Para 2 Hx # Term Pregnancies 2 Multiple births 0 Hx # Pregnancies 0 Ectopic pregnancies 0 AB induced 0 Hx Number of Living Children 2 AB spontaneous 2 Past Pregnancies Del. Date GA/Weeks # Outcome Route Wgt Sex Labor Lgth Anesthes ia Location Prov Complic 10/29/12 40 No Successful vaginal Female 01/09/19 40 No Successful vaginal 8 lb 12 oz Male Marychuy Mackenzie CNM Delivery Date: 10/29/12 Last Updated by: Marychuy De Oliveira MD Delivery Date: 01/09/19 Last Updated by: Sammi Patel LPN needle rupture by
[2022-03-07] MEDS: Lactated Ringers 1,000 ML 125 ML IV (18:35)
[2022-03-07] MEDS: Normal Saline Flush 10 ML SYR IV (20:02)
[2022-03-07] MEDS: Ketorolac 30 MG/ML VIAL IVP (20:02)
[2022-03-07] MEDS: Docusate Sodium 100 MG CAP PO (20:02)
[2022-03-08] MEDS: Ketorolac 30 MG/ML VIAL IVP ×2 (02:10→08:56)
[2022-03-08] MEDS: diphenhydrAMINE 50 MG/ML VIAL IVP (02:10)
[2022-03-08] MEDS: Normal Saline Flush 10 ML SYR IV ×3 (02:11→22:14)
[2022-03-08] MEDS: Lactated Ringers 1,000 ML 125 ML IV ×2 (02:11→10:31)
[2022-03-08 07:16] LABS: HCT 32.7 % (36.0-46.0); MCH 24.2 pg (27.0-33.0); MCHC 31.2 % (32.0-36.0); MCV 78 fL (80-95); MPV 11.4 fL (8.0-11.0); Platelet Count 184 10^3/uL (130-400); RBC 4.21 10^6/uL (3.93-5.22); RDW 13.2 % (11.7-14.6); RDW-SD 37.6 fL; WBC 12.75 10^3/uL (4.4-10.8)
[2022-03-08 07:23] LABS: HGB 10.2 g/dL (11.2-15.7)
[2022-03-08 07:33] VITALS: BP 136/76; PULSE 76; RESP 17; TEMP 37.5; O2SAT 100
[2022-03-08] MEDS: Multivitamin TAB 1 TAB PO (08:57)
[2022-03-08] MEDS: Docusate Sodium 100 MG CAP PO ×2 (08:57→19:53)
--- NOTE | 2022-03-08 09:26 | PGE_ITS ---
Date of Service Date of service: 03/08/22 Time of Service: 09:26 Assessment and Plan Assessment and plan (1) S/P laparoscopic assisted vaginal hysterectomy (LAVH): Status: Acute Assessment and plan: Patient is postoperative day #1 status laparoscopic assisted vaginal hysterectomy with bilateral salpingectomy due to significant uterine fibroids and abnormal uterine bleeding with anemia. She had an uncomplicated surgical procedure. Myrick catheter was removed postoperative day #1. Her diet will be slowly advanced. We will transition her to oral pain medication. The an ticipation would be discharged home today, or early tomorrow morning. Postoperative hemoglobin is stable at 10.2. Subjective Subjective Interval history since last seen: Patient seen and examined this morning. Pain is a 3 out of 10. Doing well. Unsure as to whether she wants to go home today or tomorrow. She is advancing her diet. Myrick catheter is out. Voiding without difficulty. Exam Const General: cooperative, healthy appearing, comfortable, no acute distress, well developed and well groomed Nutritional Appearance: average body habitus Eyes General: appearance normal, both eyes and all related structures Neck Neck: normal visual inspection and supple Resp Effort & Inspection: normal respiratory effort, no audible wheezes and no cough Cardio Rate: regular rate Rhythm: regular rhythm GI Inspection: normal to inspection, no edema and incision Skin General skin exam: no rashes or lesions noted Extrem General: no clubbing, cyanosis or edema Objective Last Vital Signs Temp 99.5 F 03/08/22 07:33 Pulse 76 03/08/22 07:33 Resp 17 03/08/22 07:33 BP 136/76 03/08/22 07:33 Pulse Ox 100 03/08/22 07:33 Laboratory Results - last 24 hr 03/08/22 06:30 WBC 12.75 H RBC 4.21 Hgb 10.2 L D Hct 32.7 L MCV 78 L MCH 24.2 L MCHC 31.2 L RDW 13.2 Plt Count 184 MPV 11.4 H
--- NOTE | 2022-03-08 09:30 | DSE_ITS ---
Date of service: 03/08/22 Time of Service: 09:31 DS: Diagnosis Discharge Diagnosis (1) S/P laparoscopic assisted vaginal hysterectomy (LAVH): Status: Acute Discharge Plan Disposition Patient Disposition: HOME Condition: Good Discharge Details Reason For Visit: LAVH Admit Date/Time: 03/07/22 14:21 Admit Provider: Patricia Hernandez Attending Provider: Patricia Hernandez Primary Care Provider: Unknown,Unknown Hospital Course Hospital Course: Patient was admitted the morning of surgery and underwent the above-stated procedure. Her uterus was bulky with multiple intramural fibroids. Estimated blood loss in the surgery 300 cc. She was discharged home on postop day #1 tolerating a regular diet and voiding spontaneously. [facility] and to discuss pathology findings. She was given instructions regarding activity levels. Prescription for Percocet 5/325 number 5 tablets were E faxed to her pharmacy along with a prescription for 600 mg of ibuprofen. Patient was instructed to stop her norethindrone acetate. Home Meds and New Rx's Prescriptions: No Action multivitamin [Daily Multi-Vitamin] Tablet 1 tab PO DAILY 0RF norethindrone acetate [Aygestin] 5 mg tablet 5 mg PO DAILY Qty: 60 6RF ibuprofen 600 mg tablet 600 mg PO Q6H PRN (Reason: pain) Qty: 60 0RF oxycodone-acetaminophen [Endocet] 5-325 mg tablet 1 tab PO Q6H MDD 4 PRN (Reason: pain) Qty: 5 0RF acetaminophen 500 mg PO DIRECTED 0RF ibuprofen 200 mg PO DIRECTED 0RF Discharge Instructions Stand Alone Forms: DSU Post Precision Crop Manager SurgeryW/Incision Activity:: Activity as Tolerated Equipment/Supplies:: No Equipment Needed Diet:: As Tolerated DS: Summary Time Spent with Patient providing and/or coordinating discharge services: Less than 30 minutes Status at Discharge Functional status at discharge: independent ambulation Overall status at discharge: patient is progressing back to baseline Mental Status: mental status grossly normal Speech and Movement: speech and movement normal Mood: congruent mood Affect: normal affect Exam Psych Mental Status: mental status grossly normal Speech and Movement: speech and movement normal Mood: congruent mood Affect: normal affect DS: Data Vitals/I&O Vitals and I&O: Vital Signs Temperature 99.5 F 03/08/22 07:33 Temperature Source Tympanic 03/08/22 07:33 Pulse 76 03/08/22 07:33 Pulse Rhythm Regular 03/08/22 09:09 Respiratory Rate 17 03/08/22 07:33 Respiratory Effort 03/08/22 09:09 Respiratory Depth Normal 03/08/22 09:09 Respiratory Pattern Normal 03/08/22 09:09 Blood Pressure 136/76 03/08/22 07:33 Pulse Oximetry 100 03/08/22 07:33 Respiratory End-tidal CO2 34 03/07/22 14:50 Oxygen Delivery Method Room Air 03/08/22 07:33 Oxygen Flow Rate 0 03/08/22 07:33 Pain Level 4 03/08/22 08:56 Intake & Output 03/07/22 03/07/22 03/08/22 11:59 23:59 11:59 Intake Total 50 / 7592.601 6173.667 / 1734.667 950 / 950 Output Total 1650 / 1650 750 / 750 Balance 50 / 84.667 34.667 / 84.667 200 / 200 Weight 150 lb 6.002 oz Intake: IV 50 / 9161.381 6502.667 / 1614.667 950 / 950 Oral 120 / 120 Output: Urine 1350 / 1350 750 / 750 Estimated Blood Loss 300 / 300 Other: Urine Color Yellow Green Yellow Green Urine Appearance Clear Clear Clear Urine Odor Normal Comment patient has green/indigo urine from dye from procedure. Post 400cc void Emesis Description None Voiding Methods Toilet Data Completed and Pending Labs on day of discharge: Labs from last 24 hours 03/08/22 06:30 WBC 12.75 H RBC 4.21 Hgb 10.2 L D Hct 32.7 L MCV 78 L MCH 24.2 L MCHC 31.2 L RDW 13.2 Plt Count 184 MPV 11.4 H PFSH All Active Problems S/P laparoscopic assisted vaginal hysterectomy (LAVH) (Acute) Dysmenorrhea (Acute) Anemia (Chronic) Genital herpes (Acute) Fibroid, uterine (Acute) Heavy menstrual bleeding (Acute) Medical History Acute tear medial meniscus History of right lateral epicondylitis Otitis media of left ear with rupture of tympanic membrane Right hamstring muscle strain Right knee pain Social History (Updated 03/07/22 @ 17:26 by Patricia Hernandez MD) Smoking/Tobacco Use Status: Never Smoking risk assessment performed?: Yes Alcohol Intake: never Drug use: Never Substance use type: does not use Adopted: No Foster care: No Household members: spouse and other Details: [employer] Number of Children: 2 Pets and animals: Yes Pets and animals: dog(s) Do you feel safe at home: Yes Do you feel safe in your relationship?: Yes History History 4 Para 2 Hx # Term Pregnancies 2 Multiple births 0 Hx # Pregnancies 0 Ectopic pregnancies 0 AB induced 0 Hx Number of Living Children 2 AB spontaneous 2 Past Pregnancies Del. Date GA/Weeks # Outcome Route Wgt Sex Labor Lgth Anesthes ia Location Prov Complic 10/29/12 40 No Successful vaginal Female 01/09/19 40 No Successful vaginal 8 lb 12 oz Male Marychuy Mackenzie CNM Delivery Date: 10/29/12 Last Updated by: Marychuy De Oliveira MD Delivery Date: 01/09/19 Last Updated by: Sammi Patel LPN needle rupture by
[2022-03-08] MEDS: Ibuprofen 600 MG TAB PO (15:08)
[2022-03-08 15:13] VITALS: BP 155/94; PULSE 80; RESP 22; TEMP 36.7; O2SAT 100
[2022-03-08] MEDS: oxyCODONE 5 mg/Acetaminophen 325 mg TAB PO ×2 (17:29→22:12)
[2022-03-08 20:03] VITALS: BP 155/99; PULSE 76; RESP 16; TEMP 37; O2SAT 96
[2022-03-09] MEDS: oxyCODONE 5 mg/Acetaminophen 325 mg TAB PO (06:06)
[2022-03-09] MEDS: Ibuprofen 600 MG TAB PO (06:06)
[2022-03-09 06:34] VITALS: BP 142/89; PULSE 69; RESP 16; TEMP 36.8; O2SAT 98
[2022-03-09 07:22] VITALS: BP 147/94; PULSE 74; RESP 14; TEMP 36.4; O2SAT 98
[2022-03-09] MEDS: Docusate Sodium 100 MG CAP PO (08:41)
[2022-03-09] MEDS: Multivitamin TAB 1 TAB PO (08:41)
[2022-03-09] MEDS: Ondansetron 4 MG/2 ML VIAL IVP (10:01)
--- NOTE | 2022-03-09 10:40 | PGE_ITS ---
Date of Service Date of service: 03/09/22 Time of Service: 10:30 Assessment and Plan Assessment and plan (1) S/P laparoscopic assisted vaginal hysterectomy (LAVH): Status: Acute Assessment and plan: POD#2 w/p hysterectomy for fibroid uterus. Doing well. Plan discharge to home. Subjective Subjective Interval history since last seen: Pt feeling well this am. OOB without difficulty. Kris PO. Pain controlled on PO meds. Exam Const General: cooperative, healthy appearing, comfortable and no acute distress [facility] Head: normocephalic and atraumatic GI Inspection: normal to inspection and incision (clean dry and intact) Palpation: soft and tender (mildly) Objective Last Vital Signs Temp 97.5 F L 03/09/22 07:22 Pulse 74 03/09/22 07:22 Resp 14 03/09/22 07:22 BP 147/94 H 03/09/22 07:22 Pulse Ox 98 03/09/22 07:22 Objective Narrative Objective Narrative:
== END 2022-03-09 13:19 | disposition home or self-care (01) ==
LOC: MS 15:13
PROVIDERS: Admitting Provider Obstetrics & Gynecology Gynecology; Visit Provider Obstetrics & Gynecology Gynecology
PROC: 0UT9FZZ Resection of Uterus, Via Natural or Artificial Opening With Percutaneous Endoscopic Assistance (ICD-10-PCS; CPT 58554; principal; 2022-03-07 09:00)
DX: D25.9 Leiomyoma of uterus, unspecified (principal); N94.6 Dysmenorrhea, unspecified; D64.9 Anemia, unspecified; T38.5X5A Adverse effect of other estrogens and progestogens, initial encounter
CPT/HCPCS: 58554; 52000; 85027; 96360; 96361; 96374; 96375; 96376; 88307; G0378; J0360; J0690; J1100; J1200; J1885; J2001; J2250; J2370; J2405; J2704; J3010